=== PATIENT | male | born 1970 ===

== ENCOUNTER 2016-08-04 10:47 | Emergency (ER) | payer SELFPAY ==
--- NOTE | 2016-08-10 11:08 | ER ---
ADMIT: 08/04/2016 RM/LOC: [facility] MR#: [id number] [id number] [place] [address] Emergency Room Report SEX: M AGE: 46 : 1970 DATE: 08/04/2016 HISTORY OF PRESENT ILLNESS: This is a 46-year-old male, complains of cough for about 2 days, still present. He has had some sensitivity to light, and nausea. REVIEW OF SYSTEMS: Otherwise negative. PAST MEDICAL HISTORY: Hepatitis C exposure. PAST SURGICAL HISTORY: He has had bilateral knee surgery and back surgery. MEDICATIONS: He has been taking Naprosyn. ALLERGIES: HE IS ALLERGIC TO PENICILLIN AND STREPTOMYCIN. SOCIAL HISTORY: He does vapor cigarettes and marijuana, drug of choice. PHYSICAL EXAMINATION: VITAL SIGNS: Blood pressure 125/78, heart rate is 108, respirations 20, temp is 98.5, O2 sats 97%. GENERAL: Mildly anxious. HEENT: Normal inspection except photophobia. No sinus tenderness. NECK: Supple. RESPIRATIONS: No distress. Breath sounds are normal. CVS: Tachycardic. ABDOMEN: Nontender. SKIN: Good color. EXTREMITIES: Well perfused. SENSORY: Cranial nerves II through XII tested. NEUROPSYCH: Oriented x4. Mood and affect appropriate. No labs done. Treated with ketorolac and Phenergan, which half an hour after he got it he said that this was the best medication he ever had for his headache. Headache is gone, he wants to get going. CLINICAL DIAGNOSIS: Acute headache. Given [facility], Dr. Nilson Torres for followup. Hydration. Rest. BETZY Wallace / Miles Villa MD / amaya JOB #: [id number] CC: Miles Villa MD, Attending Physician Nilson Torres MD, Family Physician
== END 2016-08-04 13:15 | disposition home or self-care (01) ==
LOC: ER 10:47
DX: R51 Headache (principal)